=== PATIENT | male | born 1995 | race African-American/Black ===

== ENCOUNTER 2018-01-22 22:07 | Emergency (ER) | payer MEDICAID ==
[~2018-01-22] VITALS: Ht 165.1 cm; Wt 68.0 kg
[2018-01-22 22:09] VITALS: BP 122/70
--- NOTE | 2018-01-22 22:23 | NUR ---
PATIENT STATES HE DOES NOT WANT TO BE SEEN BY A MD, AND WANT TO SLEEP IN WR. PATIENT DENEIS ANY MEDICAL COMPLAINTS, NO DISTRESS NOTED.
== END 2018-01-22 22:25 | disposition left against medical advice (07) ==
LOC: ER 22:09
DX: Z53.21 Procedure and treatment not carried out due to patient leaving prior to being seen by health care provider (principal); M79.672 Pain in left foot
CPT/HCPCS: A4606; Z7610

== ENCOUNTER 2018-01-23 05:59 | Emergency (ER) | payer MEDICAID ==
[~2018-01-23] VITALS: Ht 170.2 cm; Wt 67.1 kg
--- NOTE | 2018-01-23 06:08 | NUR ---
PT TO ER BED 14. BIBRA C/O L FOOT PAIN, PT ALSO STATES "I FEEL LIKE HURTING MYSELF". 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 VSS/RESP EVEN UNLABORED/NAD NOTED/SKIN WARM AND DRY/DENIES N-V-D/AFEBRILE/AOX4. AWAITING MD RED.
[2018-01-23] MEDS ORDERED: risperiDONE 1 MG TABLET ONE (06:29)
--- NOTE | 2018-01-23 06:29 | NUR ---
CALLED LAB FOR BLOOD DRAW/ URINE WINDOWS APPLICATION PACKAGER.
[2018-01-23] MEDS ORDERED: risperiDONE 0.25 MG TABLET PO ONE (06:30)
--- NOTE | 2018-01-23 06:36 | NUR ---
NOTED WOUND ABOVE LEFT ANKLE ON INSIDE OF LEG. WOUND CLEAN, NO DRAINAGE NOTED. PT STATES HE WAS AT ANOTHER HOSPITAL YESTERDAY AND HAD IT CLEANED AND DRESSED.
[2018-01-23 06:51] LABS: BASOPHILS % (AUTO) 0.6 % (0.0-2.0); EOSINOPHILS % (AUTO) 5.3 % (0.0-6.0); HEMATOCRIT 39 % (39-51); HEMOGLOBIN 13.6 g/dL (13.5-17.5); LYMPHOCYTES # (AUTO) 1.8 /CMM (0.8-4.8); LYMPHOCYTES % (AUTO) 36.8 % (20.0-44.0); MEAN CORPUSCULAR HGB CONC 35 g/dl (31.0-36.0); MEAN CORPUSCULAR VOLUME 94 fL (80-96); MONOCYTES # (AUTO) 0.3 /CMM (0.1-1.30); MONOCYTES % (AUTO) 5.5 % (2.0-12.0); NEUTROPHILS # (AUTO) 2.6 /CMM (1.8-8.9); NEUTROPHILS % (AUTO) 51.8 % (43.0-81.0); PLATELET COUNT (AUTO) 243 /CMM (150-450); RDW COEFFICIENT OF VARIATION 13.2 (11.5-15.0); RED BLOOD CELL COUNT(AUTO) 4.15 MIL/uL (4.5-6.0)
[2018-01-23 06:54] LABS: APPEARANCE,URINE CLEAR (CLEAR); BILIRUBIN,URINE NEGATIVE (NEGATIVE); BLOOD, URINE NEGATIVE Ery/uL (NEGATIVE); COLOR,URINE YELLOW (YELLOW); KETONES,URINE NEGATIVE (NEGATIVE); LEUKOCYTE ESTERASE ,URINE NEGATIVE (NEGATIVE); NITRITE, URINE NEGATIVE (NEGATIVE); PH,URINE 5.5 (5.0-8.0); PROTEIN,URINE NEGATIVE (NEGATIVE); UGLUCOSE NEGATIVE (NEGATIVE); UROBILINOGEN,URINE 0.2 EU/dL (0.2)
[2018-01-23 07:01] LABS: CALCIUM, SERUM 8.4 mg/dL (8.5-10.1); CARBON DIOXIDE 27 mmol/L (21-32); CHLORIDE 106 mmol/L (98-107); CREATININE 0.9 mg/dL (0.6-1.3); GLUCOSE 109 mg/dL (74-106); POTASSIUM 3.7 mmol/L (3.5-5.1); SODIUM SERUM 139 mmol/L (136-145); UREA NITROGEN, BLOOD 12 mg/dL (7-18)
[2018-01-23 07:05] LABS: ALANINE AMINOTRANSFERASE 111 U/L (12-78); ALCOHOL, BLOOD < 3 mg/dL (0-0); ALKALINE PHOSPHATASE 111 U/L (46-116); ASPARTATE AMINOTRANSFERASE 69 U/L (15-37); BILIRUBIN,TOTAL 0.3 mg/dL (0.2-1.0); TOTAL PROTEIN, SERUM 6.3 g/dL (6.4-8.2)
[2018-01-23 07:06] LABS: ACETAMINOPHEN < 2 ug/ml (10-30); SALICYLATE 0.6 mg/dL (2.8-20.0)
--- NOTE | 2018-01-23 07:10 | NUR ---
REPORT GIVEN TO GONZALO VOGT FOR [facility].
--- NOTE | 2018-01-23 07:33 | NUR ---
CALLED [facility] [phone]. NO OPEN BEDS AT THIS TIME BUT THEY WILL HAVE DISCHARGES TODAY IN THE MORNING, PER INTAKE. PACKAGE FAXED [phone].
--- NOTE | 2018-01-23 11:38 | NUR ---
NUMBER FOR REPORT: [phone] EXT [phone]
--- NOTE | 2018-01-23 11:45 | NUR ---
REPORT GIVEN TO ALIREZA SÁNCHEZ AT [facility] FOR [facility] UPON TRANSFER.
--- NOTE | 2018-01-23 11:54 | NUR ---
[facility] ETA OF 1300
[2018-01-23 12:56] VITALS: BP 121/82
--- NOTE | 2018-01-23 13:02 | NUR ---
REPORT GIVEN TO EMT AT BEDSIDE. PATIENT TRANSFERRED TO [facility] VIA AMBULANCE IN STABLE CONDITION.
== END 2018-01-23 13:01 ==
LOC: ER 06:01
DX: F28 Other psychotic disorder not due to a substance or known physiological condition (principal); F15.10 Other stimulant abuse, uncomplicated; R45.851 Suicidal ideations
CPT/HCPCS: 36415; 80048-TC; 80076-TC; 80305; 81000-TC; 85025-TC; A4606; G0480; Z7610

== ENCOUNTER 2018-01-23 13:53 | Emergency (ER) | payer MEDICAID ==
[~2018-01-23] VITALS: Ht 185.4 cm; Wt 72.6 kg
--- NOTE | 2018-01-23 14:00 | NUR ---
PT WAS SENT BACK FROM [facility]. PT IS COMPLAINING OF HUNGER. A/OX 4. BREATHING EVEN AND UNLABORED. NO SOB, NAD, VITALS STABLE. SAFETY AND COMFORT MEASURES IN PLACE. AWAITING MD ORDERS.
--- NOTE | 2018-01-23 16:40 | NUR ---
dr de la rosa
--- NOTE | 2018-01-23 16:53 | NUR ---
accepted to [facility] by dr de la rosa, number for report [phone]
[2018-01-23] MEDS ORDERED: LORAZEPAM 1 MG TABLET PO ONE (17:00)
--- NOTE | 2018-01-23 17:11 | NUR ---
REPORT GIVEN TO [facility] RN, ROOM [id number]
[2018-01-23] MEDS ORDERED: LORAZEPAM 1 MG TABLET ONE (17:12)
--- NOTE | 2018-01-23 19:02 | NUR ---
REPORT GIVEN TO MIRIAM SÁNCHEZ FOR [facility].
--- NOTE | 2018-01-23 19:02 | NUR ---
RECEIVED REPORT FROM GONZALO CHAPMAN FOR [facility].
[2018-01-23 19:53] VITALS: BP 121/71
--- NOTE | 2018-01-23 19:53 | NUR ---
REPORT GIVEN TO EMT DEON FOR [facility]. PT AWARE OF TRANSFER TO [facility]. PT WITH ALL PERSONAL BELONGINGS. VSS. PT TRANSFERRED VIA [facility]. EMT WITH ALL TRANSFER PAPERS.
== END 2018-01-23 19:59 ==
LOC: ER 13:57
DX: R45.851 Suicidal ideations (principal)
CPT/HCPCS: A4606; Z7610